=== PATIENT | female | born 1955 | race Caucasian/White ===

== ENCOUNTER → 2016-10-22 | Outpatient (CLI) | payer OTHER ==
[~2016-10-22] MED LIST: ACCUPRIL5 MG PO; ADVAIR 100/501 DISK IH; ASMANEX TW200 MICRO1 IH; ATORVASTATIN CA20 MG PO; CITALOPRAM HBR20 MG PO; COUMADIN1 MG PO; Coumadin,Jantoven PO; FLOVENT 22120 INHALA IH; Feosol PO; IRON325 M1 PO; LEXAPRO5 MG PO; LIPITOR5 MG PO; NEXIUM40 MG PO; OMEPRAZOLE40 M1 PO; OXYCODONE HCL5 MG PO; PREDNISONE20 M1 PO; PROAIR HFA8.5 GM IH; QUINAPRIL HCL40 MG PO; Senokot S,Pericolace PO; TRAMADOL HCL50 MG PO; TYLENOL REGULA325 MG PO; Theragran PO; celeXA PO; oxyCODONE PO
== END | disposition home or self-care (01) ==
LOC: NUC 08:40
DX: M25.561 Pain in right knee (principal); Z96.651 Presence of right artificial knee joint; T84.89XA Other specified complication of internal orthopedic prosthetic devices, implants and grafts, initial encounter; Y83.1 Surgical operation with implant of artificial internal device as the cause of abnormal reaction of the patient, or of later complication, without mention of misadventure at the time of the procedure
CPT/HCPCS: 78306; A9503

== ENCOUNTER 2017-02-22 11:01 | Emergency (ER) | payer OTHER ==
[~2017-02-22] VITALS: Ht 165.1 cm; Wt 136.8 kg
[2017-02-22] MEDS ORDERED: ASMANEX TW200 MICRO1 IH (11:41)
[2017-02-22] MEDS ORDERED: ALENDRONATE SOD70 MG PO (11:42)
[2017-02-22] MEDS ORDERED: PROAIR HFA8.5 GM IH (11:42)
[2017-02-22] MEDS ORDERED: CALCIUM 600 +1 EA16 PO (11:44)
[2017-02-22] MEDS ORDERED: TRAMADOL HCL50 MG PO (11:45)
[2017-02-22 11:46] LABS: HEMATOCRIT 41.3 % (36.0-46.0); MCH 28.4 PG (29.0-34.0); MEAN PLAT.VOLUME 10.7 uM^3 (9.5-12.4); PLATELET COUNT 202 K/uL (156-360); RBC DIS.WIDTH-SD 45.2 % (39-53); RED BLOOD COUNT 4.64 M/uL (3.80-5.20); WHITE BLOOD COUNT 5.8 K/uL (4.1-10.2)
[2017-02-22 11:47] LABS: ADD MIUA? NO; BILIRUBIN NEGATIVE; BLOOD NEGATIVE; COLOR YELLOW ((YELLOW)); GLUCOSE (STRIP) NEGATIVE; KETONES NEGATIVE; LEUKOCYTES NEGATIVE; NITRITE NEGATIVE; PROTEIN (STRIP) NEGATIVE; SPECIFIC GRAVITY 1.018 (1.000-1.030); UCUL ADDED? NO; UROBILINOGEN 0.2 MG/DL (0.2-1.0)
[2017-02-22] MEDS ORDERED: CIPROFLOXACIN500 M1 PO (11:47)
[2017-02-22 11:54] LABS: INTER. NORMALIZED RATIO 1.1; PROTHROMBIN TIME 10.7 (9.2-11.2); PTT 25.2 (25-32)
[2017-02-22 11:56] LABS: CHLORIDE 107 mEq/L (99-109)
[2017-02-22 11:57] LABS: POTASSIUM 4.2 mEq/L (3.7-5.4); SODIUM 139 mEq/L (136-147)
[2017-02-22 11:58] LABS: GLUCOSE 107 mg/dL (70-99)
[2017-02-22 12:00] LABS: ANION GAP 9 MEQ/L (2-14)
[2017-02-22 12:02] LABS: GFR ESTIMATE (CALCULATED) 40 mL/min/
[2017-02-22 12:03] LABS: UREA NITROGEN (BUN) 22 mg/dL (9-23)
[2017-02-22 13:14] VITALS: BP 104/79
[2017-02-26] MEDS ORDERED: BACTRIM,SEPT1 TABLET PO (10:28)
== END 2017-02-22 13:15 | disposition home or self-care (01) ==
LOC: EME 11:01
PROVIDERS: Physician Assistant
DX: R23.3 Spontaneous ecchymoses (principal); I10 Essential (primary) hypertension; E78.5 Hyperlipidemia, unspecified; K21.9 Gastro-esophageal reflux disease without esophagitis; F41.9 Anxiety disorder, unspecified; J45.909 Unspecified asthma, uncomplicated; Z85.528 Personal history of other malignant neoplasm of kidney; Z90.5 Acquired absence of kidney
CPT/HCPCS: 80048; 81003; 85027; 85610; 85730; 93971; 99281; 99284

== ENCOUNTER 2017-03-03 06:24 | Inpatient (IN) | payer OTHER ==
[~2017-03-03] VITALS: Ht 165.1 cm; Wt 137.8 kg
[~2017-03-03 06:24] MED LIST changes: +ALENDRONATE SOD70 MG PO; +BACTRIM,SEPT1 TABLET PO; +CALCIUM 600 +1 EA16 PO; +CIPROFLOXACIN500 M1 PO
[2017-03-03 07:30] VITALS: BP 122/74
[2017-03-03 14:42] VITALS: BP 120/56
[2017-03-03 15:05] VITALS: BP 148/68
[2017-03-03 17:30] VITALS: BP 157/71
[2017-03-03 20:02] VITALS: BP 146/69
[2017-03-04 00:20] VITALS: BP 125/66
[2017-03-04 04:30] VITALS: BP 131/63
[2017-03-04 06:43] LABS: HEMATOCRIT 37.5 % (36.0-46.0); MCV 91.5 FL (83-99)
[2017-03-04 08:00] VITALS: BP 108/56
[2017-03-04 12:00] VITALS: BP 121/58
[2017-03-04 15:49] VITALS: BP 126/56
[2017-03-04 20:08] VITALS: BP 130/68
[2017-03-05 00:15] VITALS: BP 138/67
[2017-03-05 04:00] VITALS: BP 128/56
[2017-03-05 06:08] LABS: HEMATOCRIT 33.8 % (36.0-46.0); MCV 89.7 FL (83-99)
[2017-03-05 08:17] VITALS: BP 130/67
[2017-03-05] MEDS ORDERED: OXYCODONE HCL5 MG PO (09:41)
[2017-03-05] MEDS ORDERED: ELIQUIS2.5 MG PO (09:41)
[2017-03-05 12:09] VITALS: BP 120/59
== END 2017-03-05 14:07 | DRG 467 ==
LOC: 2SOUTH → 3WEST 14:14 → 2SOUTH 16:03 → 3WEST 03-05 14:07
PROVIDERS: Orthopaedic Surgery
PROC: 0SWV0JZ Revision of Synthetic Substitute in Right Knee Joint, Tibial Surface, Open Approach (ICD-10-PCS; principal; 2017-03-03)
DX: T84.032A Mechanical loosening of internal right knee prosthetic joint, initial encounter (principal); Y79.2 Prosthetic and other implants, materials and accessory orthopedic devices associated with adverse incidents; M17.11 Unilateral primary osteoarthritis, right knee; I10 Essential (primary) hypertension; E78.00 Pure hypercholesterolemia, unspecified; K21.9 Gastro-esophageal reflux disease without esophagitis; J45.909 Unspecified asthma, uncomplicated; Z96.652 Presence of left artificial knee joint; E66.01 Morbid (severe) obesity due to excess calories; Z68.43 Body mass index [BMI] 50.0-59.9, adult
CPT/HCPCS: 85014; 85018; 87070; 87075; 87205; 94640 76; 94799; 97530 GP; 99202; C1713; J0131; J0690; J1885; J2250; J2405; J2765; J2795; J7050

== ENCOUNTER 2017-06-16 10:55 | Emergency (ER) | payer OTHER ==
[~2017-06-16] VITALS: Ht 165.1 cm; Wt 138.7 kg
[~2017-06-16 10:55] MED LIST changes: +ELIQUIS2.5 MG PO
[2017-06-16 14:56] VITALS: BP 143/70
== END 2017-06-16 14:57 | disposition home or self-care (01) ==
LOC: EME 10:55
PROC: 3E0234Z Introduction of Serum, Toxoid and Vaccine into Muscle, Percutaneous Approach (ICD-10-PCS; principal; 2017-06-16)
DX: S80.01XA Contusion of right knee, initial encounter (principal); S92.402A Displaced unspecified fracture of left great toe, initial encounter for closed fracture; W01.0XXA Fall on same level from slipping, tripping and stumbling without subsequent striking against object, initial encounter; Y92.89 Other specified places as the place of occurrence of the external cause; M79.641 Pain in right hand; M25.551 Pain in right hip; Z23 Encounter for immunization; K21.9 Gastro-esophageal reflux disease without esophagitis; J45.909 Unspecified asthma, uncomplicated; F41.9 Anxiety disorder, unspecified; E78.5 Hyperlipidemia, unspecified; Z96.653 Presence of artificial knee joint, bilateral
CPT/HCPCS: 73564; 73630; 99281; 99284

== ENCOUNTER 2017-12-03 07:15 | Day surgery (SDC) | payer OTHER ==
[~2017-12-03] VITALS: Ht 165.1 cm; Wt 131.5 kg
[~2017-12-03 07:15] MED LIST changes: +ALENDRONATE SOD35 MG PO; +ERGOCALCIF50000 UNIT PO; +VENTOLIN HFA18 GM IH
== END 2017-12-03 09:15 | disposition home or self-care (01) ==
LOC: PAIN 07:15 → SDC 08:00 → PAIN 09:15
DX: M53.3 Sacrococcygeal disorders, not elsewhere classified (principal); M46.1 Sacroiliitis, not elsewhere classified; G89.29 Other chronic pain; M17.10 Unilateral primary osteoarthritis, unspecified knee; M54.5 Low back pain; I12.9 Hypertensive chronic kidney disease with stage 1 through stage 4 chronic kidney disease, or unspecified chronic kidney disease; N18.1 Chronic kidney disease, stage 1; K21.9 Gastro-esophageal reflux disease without esophagitis; E78.2 Mixed hyperlipidemia; E66.9 Obesity, unspecified; Z68.42 Body mass index [BMI] 45.0-49.9, adult
CPT/HCPCS: J1030; J2250; S0020